=== PATIENT | male | born 1955 | race Caucasian/White ===

== ENCOUNTER → 2020-08-03 | Day surgery (SDC) | payer OTHER, MEDICARE ==
[~2020-08-03] VITALS: Ht 167.6 cm; Wt 74.8 kg
[2020-08-03] VITALS (7 sets, daily range): BP systolic 123–169; BP diastolic 66–82
[~2020-08-03] MED LIST: CIPRO500 MG PO; COLACE100 MG PO; CREON DR 12,001 EACH PO; FLAGYL500 MG PO; LACTINEX 0.2 MG1 TAB PO; LISINOPRIL5 MG PO; PANTOPRAZOLE SO40 MG PO; PERCOCET 5-3251 EACH PO; QUESTRAN LIGHT4 GM PO; ZOFRAN4 MG PO
== END | disposition home or self-care (01) ==
LOC: SDC 07-31 14:00
PROVIDERS: ATTEND Surgery
DX: K80.12 Calculus of gallbladder with acute and chronic cholecystitis without obstruction (principal); I10 Essential (primary) hypertension; K21.9 Gastro-esophageal reflux disease without esophagitis; K75.9 Inflammatory liver disease, unspecified; F17.210 Nicotine dependence, cigarettes, uncomplicated; D64.9 Anemia, unspecified; Z79.899 Other long term (current) drug therapy